=== PATIENT | female | born 2000 | race Caucasian/White ===

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

== ENCOUNTER 2025-03-31 00:36 | Emergency (ER) | payer SELFPAY ==
[2025-03-31 00:37] VITALS: BP 128/88; PULSE 85; RESP 16; TEMP 36.6; O2SAT 100; BMI 29.0
[2025-03-31 01:49] VITALS: BP 100/67; PULSE 73; RESP 16; TEMP 37.1; O2SAT 98
== END 2025-03-31 01:57 | disposition home or self-care (01) ==
PROVIDERS: Emergency Provider Emergency Medicine; PCP Internal Medicine; Visit Provider Emergency Medicine
DX: S52.121A Displaced fracture of head of right radius, initial encounter for closed fracture (principal); W19.XXXA Unspecified fall, initial encounter
CPT/HCPCS: 73080; 96374; 96375; 99284; A4216; J2405